=== PATIENT | female | born 1985 | race Caucasian/White ===

== ENCOUNTER 2022-03-11 23:47 | Emergency (ER) | payer OTHER ==
[2022-03-12 00:50] LABS: Bilirubin Neg (Negative); Blood, Urine 250 (Negative); Clarity Sl. Cloudy (Clear); Glucose, Urine (Dipstick) Normal (Negative); Ketone, Urine Negative (Negative); Leukocyte 500 (Negative); Nitrite Negative (Negative); Protein, Urine (Dipstick) 15 mg/dl (Neg-Trace); Specific Gravity, Urine 1.015 (1.005-1.030); Urobilinogen Normal mg/dL (Less than 2)
[2022-03-12 00:53] LABS: Pregnancy Test - Urine (BHCG) Negative (Negative); Pregu Control Background? CLEAR/WHITE (CLR/WHITE); Pregu Control Bar Appear? YES (CONTROL BAR); Specific Gravity 1.015 (1.002-1.036)
[2022-03-12 01:10] LABS: Bacteria/HPF 1+ HPF (None Seen)
[2022-03-12 01:23] LABS: #Basophils 0.1 10x3/uL (0.0-0.2); #Eosinphils 0.3 10x3/uL (0.0-0.5); #Monocytes 0.7 10x3/uL (0.0-1.1); #Neutrophils 4.2 10x3/uL (1.5-8.4); %Basophils 1.1 % (0.0-2.0); %Eosinophils 3.6 % (0.0-6.0); %Lymphocytes 29.6 % (18.0-47.0); %Monocytes 9.2 % (0.0-10.0); %Neutrophils 56.2 % (40.0-75.0); Hemoglobin 13.3 g/dL (12.0-15.5); Mean Corpuscular HGB CONC 34.7 g/dL (32.0-36.0); Mean Corpuscular Volume 89.3 fl (81.6-98.3); Platelet Count 235 10x3/uL (150-450); RBC Distribution Width 12.6 % (11.5-14.5); Red Blood Cell (RBC) Count 4.29 10x6/uL (3.90-5.03); White Blood Cell (WBC) Count 7.5 10x3/uL (3.5-10.5)
[2022-03-12 01:26] LABS: ALT (SGPT) 12 U/L (8-55); AST (SGOT) 15 U/L (5-34); Albumin 3.8 g/dL (3.5-5.0); Alkaline Phosphatase 77 U/L (40-110); Anion Gap 9 mmol/L (10-20); BUN (Urea Nitrogen) 11 mg/dL (7.0-18.7); Bilirubin, Total 0.5 mg/dL (0.2-1.2); Calc. Creatinine Clearance 0 mL/min (70-130); Calcium 8.7 mg/dL (7.8-10.44); Carbon Dioxide 25 mmol/L (22-29); Chloride 107 mmol/L (98-107); Estimated GFR 116; Globulin 2.1 g/dL (2.4-3.5); Glucose 82 mg/dL (70-105); Potassium 3.9 mmol/L (3.5-5.1); Protein, Total 5.9 g/dL (6.0-8.3); Sodium 137 mmol/L (136-145)
[2022-03-12] MEDS ORDERED: Acetaminophen 500 MG TAB ONE (01:46)
[2022-03-12] MEDS ORDERED: Metoclopramide HCl 10 MG/2 ML VIAL ONE (01:46)
[2022-03-12] MEDS ORDERED: diphenhydrAMINE 50 MG/ML VIAL ONE (01:47)
[2022-03-12 21:10] LABS: Chlamydia by PCR Not Detected (NotDetected); GC by PCR Not Detected (NotDetected)
== END 2022-03-12 03:23 | disposition home or self-care (01) ==
LOC: CSHERS 23:47
DX: I10 Essential (primary) hypertension (principal); R60.0 Localized edema; K76.89 Other specified diseases of liver
CPT/HCPCS: 74177; 80053; 81003; 81015; 81025; 85025; 85379; 87480; 87491; 87510; 87591; 87660; 96374; 96375; J1200; J2765

== ENCOUNTER 2022-05-12 19:41 | Emergency (ER) | payer OTHER ==
[2022-05-12] MEDS ORDERED: Ketorolac Tromethamine 30 MG/ML VIAL ONE (21:50)
[2022-05-12] MEDS ORDERED: Cyclobenzaprine 10 MG TAB ONE (21:51)
[2022-05-12 22:16] LABS: #Basophils 0.1 10x3/uL (0.0-0.2); #Eosinphils 0.4 10x3/uL (0.0-0.5); #Monocytes 0.8 10x3/uL (0.0-1.1); #Neutrophils 7.9 10x3/uL (1.5-8.4); %Basophils 0.6 % (0.0-2.0); %Eosinophils 3.8 % (0.0-6.0); %Lymphocytes 13.3 % (18.0-47.0); %Monocytes 7.4 % (0.0-10.0); %Neutrophils 74.7 % (40.0-75.0); Hemoglobin 13.4 g/dL (12.0-15.5); Mean Corpuscular HGB CONC 34.1 g/dL (32.0-36.0); Mean Corpuscular Hemoglobin 30.1 pg (27.0-33.0); Mean Corpuscular Volume 88.3 fl (81.6-98.3); Mean Platelet Volume 10.8 fl (7.4-10.4); Platelet Count 298 10x3/uL (150-450); RBC Distribution Width 11.9 % (11.5-14.5); Red Blood Cell (RBC) Count 4.45 10x6/uL (3.90-5.03); White Blood Cell (WBC) Count 10.6 10x3/uL (3.5-10.5)
[2022-05-12 22:37] LABS: ALT (SGPT) 9 U/L (8-55); AST (SGOT) 12 U/L (5-34); Albumin 3.8 g/dL (3.5-5.0); Alkaline Phosphatase 108 U/L (40-110); Anion Gap 11 mmol/L (10-20); BUN (Urea Nitrogen) 8 mg/dL (7.0-18.7); Bilirubin, Total 0.5 mg/dL (0.2-1.2); Calc. Creatinine Clearance 0 mL/min (70-130); Calcium 9.3 mg/dL (7.8-10.44); Carbon Dioxide 26 mmol/L (22-29); Chloride 105 mmol/L (98-107); Estimated GFR 117; Glucose 65 mg/dL (70-105); Protein, Total 6.8 g/dL (6.0-8.3); Sodium 138 mmol/L (136-145)
[2022-05-12 23:14] LABS: Bilirubin Neg (Negative); Blood, Urine 50 (Negative); Clarity Slightly Cloudy (Clear); Glucose, Urine (Dipstick) >=1000 mg/dL (Negative); Ketone, Urine Negative (Negative); Leukocyte 500 (Negative); Nitrite Negative (Negative); Protein, Urine (Dipstick) 30 mg/dl (Neg-Trace); Specific Gravity, Urine 1.025 (1.005-1.030); Urobilinogen Normal mg/dL (Less than 2)
[2022-05-12 23:20] LABS: RBC/HPF 0-3 HPF (0-3)
[2022-05-12 23:21] LABS: Bacteria/HPF Rare-Few HPF (None Seen); Squamous Epithelial 0-3 HPF (0-3)
[2022-05-12] MEDS ORDERED: Morphine 4 MG/ML VIAL ONE (23:41)
== END 2022-05-13 00:13 | disposition home or self-care (01) ==
LOC: CSHERS 19:41
DX: R10.32 Left lower quadrant pain (principal); R10.31 Right lower quadrant pain; D64.9 Anemia, unspecified; Z95.0 Presence of cardiac pacemaker
CPT/HCPCS: 80053; 81003; 81015; 83605; 85025; 96374; 96375; J1885; J2270

== ENCOUNTER 2022-05-14 02:58 | Emergency (ER) | payer OTHER ==
[2022-05-14] MEDS ORDERED: Acetaminophen 500 MG TAB ONE (03:17)
[2022-05-14] MEDS ORDERED: Morphine 4 MG/ML VIAL ONE (03:17)
[2022-05-14] MEDS ORDERED: Ondansetron PF 4 MG/2 ML Vial ONE (03:18)
[2022-05-14 03:57] LABS: #Basophils 0.1 10x3/uL (0.0-0.2); #Eosinphils 0.1 10x3/uL (0.0-0.5); #Monocytes 0.5 10x3/uL (0.0-1.1); #Neutrophils 7.6 10x3/uL (1.5-8.4); %Basophils 0.6 % (0.0-2.0); %Eosinophils 1.2 % (0.0-6.0); %Lymphocytes 6.2 % (18.0-47.0); %Monocytes 5.4 % (0.0-10.0); %Neutrophils 86.4 % (40.0-75.0); Hemoglobin 13.2 g/dL (12.0-15.5); Mean Corpuscular HGB CONC 34.4 g/dL (32.0-36.0); Mean Corpuscular Hemoglobin 30.1 pg (27.0-33.0); Mean Corpuscular Volume 87.5 fl (81.6-98.3); Mean Platelet Volume 10.8 fl (7.4-10.4); Platelet Count 273 10x3/uL (150-450); RBC Distribution Width 11.7 % (11.5-14.5); Red Blood Cell (RBC) Count 4.39 10x6/uL (3.90-5.03); White Blood Cell (WBC) Count 8.8 10x3/uL (3.5-10.5)
[2022-05-14 04:07] LABS: ALT (SGPT) 6 U/L (8-55); AST (SGOT) 12 U/L (5-34); Albumin 3.8 g/dL (3.5-5.0); Alkaline Phosphatase 117 U/L (40-110); Anion Gap 15 mmol/L (10-20); BUN (Urea Nitrogen) 9 mg/dL (7.0-18.7); Bilirubin, Total 0.8 mg/dL (0.2-1.2); Calc. Creatinine Clearance 0 mL/min (70-130); Calcium 9.3 mg/dL (7.8-10.44); Carbon Dioxide 22 mmol/L (22-29); Chloride 102 mmol/L (98-107); Estimated GFR 112; Globulin 3.2 g/dL (2.4-3.5); Glucose 107 mg/dL (70-105); Sodium 135 mmol/L (136-145)
[2022-05-14 04:20] LABS: SARS-CoV-2 NAA Rapid Test Not Detected (NotDetected)
== END 2022-05-14 05:56 | disposition home or self-care (01) ==
LOC: CSHERS 02:58
DX: R50.9 Fever, unspecified (principal); R10.30 Lower abdominal pain, unspecified; Z20.822 Contact with and (suspected) exposure to COVID-19
CPT/HCPCS: 74177; 80053; 85025; 96374; 96375; J2270; J2405

== ENCOUNTER 2023-05-01 12:23 | Emergency (ER) | payer OTHER ==
[2023-05-01] MEDS ORDERED: Iopamidol 370 76% 100 ML VIAL ONE (12:38)
[2023-05-01] MEDS ORDERED: Acetaminophen 500 MG TAB ONE (13:57)
[2023-05-01 14:06] LABS: Hematocrit 40.7 % (34.9-44.5); Hemoglobin 14.1 g/dL (12.0-15.5); Mean Corpuscular HGB CONC 34.6 g/dL (32.0-36.0); Mean Corpuscular Hemoglobin 29.7 pg (27.0-33.0); Mean Corpuscular Volume 85.9 fl (81.6-98.3); Mean Platelet Volume 10.8 fl (7.4-10.4); Platelet Count 288 10x3/uL (150-450); RBC Distribution Width 13.2 % (11.5-14.5); Red Blood Cell (RBC) Count 4.74 10x6/uL (3.90-5.03); White Blood Cell (WBC) Count 4.6 10x3/uL (3.5-10.5)
[2023-05-01 14:13] LABS: ALT (SGPT) 25 U/L (8-55); AST (SGOT) 21 U/L (5-34); Albumin 3.8 g/dL (3.5-5.0); Alkaline Phosphatase 102 U/L (40-110); Anion Gap 14 mmol/L (10-20); BUN (Urea Nitrogen) 6 mg/dL (7.0-18.7); Bilirubin, Total 0.5 mg/dL (0.2-1.2); Calc. Creatinine Clearance 0 mL/min (70-130); Calcium 8.7 mg/dL (7.8-10.44); Carbon Dioxide 21 mmol/L (22-29); Chloride 109 mmol/L (98-107); Estimated GFR 113; Globulin 2.3 g/dL (2.4-3.5); Glucose 85 mg/dL (70-105); Protein, Total 6.1 g/dL (6.0-8.3); Sodium 140 mmol/L (136-145)
[2023-05-01 14:14] LABS: MDiff Complete? YES
[2023-05-01 14:24] LABS: INR-International Normal Ratio 1.1; PTT 29.4 sec (22.0-33.0); Prothrombin Time 11.6 sec (9.5-12.1)
[2023-05-01 15:35] LABS: Troponin I Less than 0.010 ng/mL (< 0.028)
[2023-05-01 15:53] LABS: Band 3 % (5-11); Eosinophils 5 % (0-10); Lymphocytes 15 % (21-51); Monocytes 7 % (0-10); Neutrophil 62 % (42-75); Reactive Lymphocytes 4 % (0-10)
[2023-05-01 15:58] LABS: RBC Morph Comment Within Normal Limits; Toxic Granulation SLIGHT; Vacuoles SLIGHT
[2023-05-01 15:59] LABS: Platelet Adequacy Comment Appears Adequate
[2023-05-01] MEDS ORDERED: Morphine 4 MG/ML VIAL ONE (16:21)
== END 2023-05-01 18:09 | disposition home or self-care (01) ==
LOC: CSHERS 12:23
DX: M79.662 Pain in left lower leg (principal)
CPT/HCPCS: 71045; 80053; 83605; 84484; 85025; 85610; 85730; 93923; 96374; J2270; Q9967